=== PATIENT | male | born 1965 | race African-American/Black ===

== ENCOUNTER 2023-01-06 23:06 | Emergency (ER) | payer OTHER ==
[~2023-01-06] VITALS: Ht 193 cm; Wt 122.5 kg
[2023-01-07 01:43] VITALS: BP 151/73
== END 2023-01-07 03:43 | disposition home or self-care (01) ==
LOC: ER 23:06
DX: G43.909 Migraine, unspecified, not intractable, without status migrainosus (principal); I10 Essential (primary) hypertension
CPT/HCPCS: 70450

== ENCOUNTER 2024-03-22 13:08 | Emergency (ER) | payer OTHER ==
[~2024-03-22] VITALS: Ht 193 cm; Wt 122.8 kg
[2024-03-22 14:23] VITALS: RESP 18; O2SAT 98
[2024-03-22 16:22] VITALS: BP 156/98; PULSE 88; RESP 17; TEMP 98; O2SAT 98
== END 2024-03-22 16:25 | disposition home or self-care (01) ==
LOC: ER 13:08
DX: R13.10 Dysphagia, unspecified (principal)
CPT/HCPCS: 70360